=== PATIENT | male | born 1995 | race Hispanic/Latino ===

== ENCOUNTER 2020-04-14 21:53 | Emergency (ER) | payer BC, SELFPAY ==
--- NOTE | 2020-04-14 23:59 | ER ---
Nurse's Notes [facility] Name: Doroteo Stanley Age: 24 yrs Sex: Male : 1995 Arrival Date: 04/14/2020 Time: 21:59 Bed Waiting Private MD: Delma Breaux Diagnosis: Presentation: 04/14 22:14 Chief complaint: Patient states: Rectal bleed since yesterday. Bright red blood. [place] a ca1 lump in the rectal area but not sure if it hemorrhoids. Reports N/V/D. Reports pain with defecation, general weakness and rectal pain. Coronavirus screen: Client denies travel out of the [place] in the last 14 days. nausea, Client presents with at least one sign or symptom that may indicate coronavirus-19. Standard/surgical mask placed on the client. Provider contacted for isolation considerations. Ebola Screen: Patient negative for fever greater than or equal to 101.5 degrees Fahrenheit, and additional compatible Ebola Virus Disease symptoms Patient denies exposure to infectious person. Patient denies travel to an Ebola-affected area in the 21 days before illness onset. No symptoms or risks identified at this time. Initial Sepsis Screen: Does the patient meet any 2 criteria? No. Patient's initial sepsis screen is negative. Does the patient have a suspected source of infection? No. Patient's initial sepsis screen is negative. Risk Assessment: Do you want to hurt yourself or someone else? Patient reports no desire to harm self or others. Onset of symptoms was April 14, 2020. 22:14 Method Of Arrival: Ambulatory ca1 22:14 Acuity: YOJANA 3 ca1 23:58 Note notified by registration that pt left without being seen. bb Historical: - Allergies: 22:17 No Known Allergies; ca1 - Home Meds: 22:17 None [Active]; ca1 - PMHx: 22:17 None; ca1 - PSHx: 22:17 Appendectomy; ca1 - Immunization history:: Adult Immunizations up to date, Flu vaccine is not up to date. - Social history:: Smoking status: Patient denies any tobacco usage or history of. Vital Signs: 22:14 BP 120 / 71; Pulse 108; Resp 18 S; Temp 99.2(TE); Pulse Ox 99% ; Weight 110.22 kg (R); ca1 Height 5 ft. 8 in. (172.72 cm) (R); Pain 6/10; 22:14 Body Mass Index 36.95 (110.22 kg, 172.72 cm) ca1 ED Course: 21:59 Patient arrived in ED. am2 21:59 Delma Breaux is Private Physician. am2 22:14 Arm band placed on right wrist. ca1 22:17 Triage completed. ca1 23:58 Patient's name was called from ER lobby. Unable to locate patient. Will disposition as bb left without being seen by a provider. Administered Medications: No medications were administered Outcome: 23:59 Patient left the ED. bb Signatures: Rashmi Comer RN RN bb Deena Alcantara am2 Jeanna Marquez RN RN ca1 Corrections: (The following items were deleted from the chart) 22:18 22:14 Pulse 108bpm; Resp 18bpm; Spontaneous; Pulse Ox 99%; Temp 99.2F Temporal; 110.22 ca1 kg Reported; Height 5 ft. 8 in. Reported; BMI: 36.9; Pain 6/10; ca1
[2020-04-15 06:29] VITALS: BP 120/71; TEMP 99.2; O2SAT 99
== END 2020-04-14 23:59 | disposition left against medical advice (07) ==
LOC: ER 21:53
DX: Z53.21 Procedure and treatment not carried out due to patient leaving prior to being seen by health care provider (principal)
CPT/HCPCS: 99281

== ENCOUNTER 2020-04-16 09:22 | Emergency (ER) | payer SELFPAY ==
--- OUTSIDE RECORDS SUMMARY | 2020-04-16 09:24 | XMS REPORT | Continuity of Care Document ---
:1995 Author Organization [facility] t Address [address] [place] [address] [place] [id number] Care Team Providers Name Role Phone Unavailable Unavailable Unavailable Problems This patient has no known problems. Allergies, Adverse Reactions, Alerts This patient has no known allergies or adverse reactions. Medications This patient has no known medications. Procedures This patient has no known procedures. Results This patient has no known results.
[2020-04-16 10:50] LABS: RBC Red Blood Cell Count 5.08 M/uL (4.33-5.43)
[2020-04-16 10:51] LABS: Absolute Lymphocytes (CBC) 0.6 K/uL (0.7-4.9); Basophils % 0.2 % (0-1.3); Hematocrit 42.7 % (39.6-49.0); Lymphocytes % 4.2 % (15.3-44.8); MPV 8.9 fL (7.6-11.3)
[2020-04-16] MEDS ORDERED: FAMOTIDINE 20 MG/2 ML VIAL IV ONE (10:53)
[2020-04-16] MEDS ORDERED: ONDANSETRON 4 MG/2 ML VIAL ONE (10:53)
[2020-04-16] MEDS ORDERED: NA CHLORIDE 0.9% 1,000 ML ONE (10:53)
[2020-04-16 11:09] LABS: ALT/SGPT 61 U/L (12-78); AST/SGOT 22 U/L (15-37); Albumin 4.2 g/dL (3.4-5.0); Alkaline Phosphatase 65 U/L (45-117); BUN Blood Urea Nitrogen 13 mg/dL (7-18); Bicarbonate 27 mmol/L (21-32); Bilirubin Direct 0.1 mg/dL (0-0.2); Bilirubin Total 0.7 mg/dL (0.2-1.0); Glucose Level 113 mg/dL (74-106); Lipase 87 U/L (73-393); Potassium 3.7 mmol/L (3.5-5.1); Protein, Total 8.3 g/dL (6.4-8.2); Sodium Level 139 mmol/L (136-145)
--- NOTE | 2020-04-16 11:45 | RAD REPORT ---
EXAM DESCRIPTION: CTAbdomen Pelvis W Contrast - 04/16/2020 11:27 am CLINICAL HISTORY: Abdominal pain. abdominal pain, vomiting COMPARISON: No comparisons TECHNIQUE: Biphasic CT imaging of the abdomen and pelvis was performed with 100 ml non-ionic IV cont rast. All CT scans are performed using dose optimization technique as appropriate and may include automated exposure control or mA/KV adjustment according to patient size. FINDINGS: The lung bases are clear. The liver, spleen, pancreas, adrenal glands and kidneys are within normal limits. No bowel obstruction, free air, free fluid or abscess. Appendectomy. No evidence of significant lym phadenopathy. No suspicious bony findings. IMPRESSION: No acute intra-abdominal or pelvic finding.
--- NOTE | 2020-04-16 11:58 | ER ---
Nurse's Notes [facility] Name: Doroteo Stanley Age: 24 yrs Sex: Male : 1995 Arrival Date: 04/16/2020 Time: 09:25 Bed 23 Private MD: Diagnosis: Gastrointestinal hemorrhage, unspecified;Vomiting Presentation: 04/16 09:38 Chief complaint: Abdominal pain and bright red blood in stool x 4 days, neck stiffness, hb N/V, and headache today. Not tolerating fluids. Coronavirus screen: Client presents with at least one sign or symptom that may indicate coronavirus-19. Standard/surgical mask placed on the client. Provider contacted for isolation considerations. Ebola Screen: No symptoms or risks identified at this time. Initial Sepsis Screen: Does the patient meet any 2 criteria? HR > 90 bpm. No. Patient's initial sepsis screen is negative. Does the patient have a suspected source of infection? No. Patient's initial sepsis screen is negative. Risk Assessment: Do you want to hurt yourself or someone else? Patient reports no desire to harm self or others. Onset of symptoms was April 12, 2020. 09:38 Method Of Arrival: Ambulatory hb 09:38 Acuity: YOJANA 3 hb Triage Assessment: 10:30 General: Appears in no apparent distress. uncomfortable, Behavior is calm, cooperative. dm5 Pain: Complains of pain in abdomen. Neuro: No deficits noted. Cardiovascular: No deficits noted. Respiratory: No deficits noted. GI: Reports lower abdominal pain, upper abdominal pain, bloody stool, nausea. Derm: Skin is intact, is healthy with good turgor. Historical: - Allergies: 09:40 No Known Allergies; hb - Home Meds: 09:40 None [Active]; hb - PMHx: 09:40 None; hb - PSHx: 09:40 Appendectomy; hb - Immunization history:: Adult Immunizations up to date. - Social history:: Smoking status: Patient denies any tobacco usage or history of. Screenin:55 Abuse screen: Denies threats or abuse. Denies injuries from another. Nutritional dm5 screening: No deficits noted. Tuberculosis screening: No symptoms or risk factors identified. Fall Risk None identified. Vital Signs: 09:38 BP 124 / 80; Pulse 114; Resp 16; Temp 99.9(TE); Pulse Ox 98% on R/A; Pain 10/10; hb 12:43 BP 118 / 76; Pulse 95; Resp 18; Temp 98.0; Pulse Ox 100% on R/A; dm5 ED Course: 09:25 Patient arrived in ED. ds1 09:40 Triage completed. hb 09:40 Arm band placed on. hb 10:20 Kong Hamilton PA is PHCP. [facility] 10:20 Mello Garcia MD is Attending Physician. jmm 10:30 Initial lab(s) drawn, by nj, sent to lab. Inserted saline lock: 20 gauge in right dm5 antecubital area, using aseptic technique. Blood collected. 10:37 Beronica Casas, RN is Primary Nurse. dm5 10:55 Patient has correct armband on for positive identification. Warm blanket given. dm5 11:24 CT completed. Patient tolerated procedure well. Patient moved to CT via wheelchair. sw Patient moved back from CT. 11:27 CT Abd/Pelvis - IV Contrast Only In Process Unspecified. EDMS 11:56 Landon Monaco MD is Referral Physician. jmm 12:43 IV discontinued, intact, bleeding controlled, No redness/swelling at site. Pressure dm5 dressing applied. Administered Medications: 10:42 Drug: NS 0.9% 1000 ml Route: IV; Rate: 1 bolus; Site: right antecubital; dm5 10:43 Drug: Zofran (Ondansetron) 4 mg Route: IVP; Site: right antecubital; dm5 10:46 Drug: Pepcid 20 mg Route: IVP; Site: right antecubital; dm5 10:48 CANCELLED (Duplicate Order): Pepcid 10 mg IVP once dm5 Outcome: 11:57 Discharge ordered by . jmm 13:07 Patient left the ED. dm5 Signatures: Dispatcher [employer] EDMS Beronica Casas, RN RN dm5 Kong Hamilton PA PA jmm Sanford, Demi ds1 Margie Garcia Heather, CARY RN hb
--- NOTE | 2020-04-16 11:58 | EDPHYS ---
Physician Documentation [facility] Name: Doroteo Stanley Age: 24 yrs Sex: Male : 1995 Arrival Date: 04/16/2020 Time: 09:25 Bed 23 Private MD: ED Physician Mello Garcia HPI: 04/16 10:55 This 24 yrs old Male presents to ER via Ambulatory with complaints of jmm Nausea/Vomiting, Bloody Stools. 10:55 The patient presents to the emergency department with nausea, vomiting, diarrhea, jmm abdominal pain. Onset: The symptoms/episode began/occurred gradually, 4 day(s) ago. Possible causes: unknown. The symptoms are aggravated by nothing. The symptoms are alleviated by nothing. This is a 24 year old male with no known chronic medical conditions that presents to the ED with complaints of rectal bleeding, vomiting abdominal pain. Beginning approx 4 days ago. Blood is bright red. Denies fever. Surgical history of appendectomy 3 years prior. . Historical: - Allergies: 09:40 No Known Allergies; hb - Home Meds: 09:40 None [Active]; hb - PMHx: 09:40 None; hb - PSHx: 09:40 Appendectomy; hb - Immunization history:: Adult Immunizations up to date. - Social history:: Smoking status: Patient denies any tobacco usage or history of. ROS: 10:55 Constitutional: Negative for fever, chills, and weight loss, Cardiovascular: Negative jmm for chest pain, palpitations, and edema, Respiratory: Negative for shortness of breath, cough, wheezing, and pleuritic chest pain. 10:55 Abdomen/GI: Positive for abdominal pain, nausea and vomiting, rectal bleeding. 10:55 All other systems are negative. Exam: 10:55 Constitutional: This is a well developed, well nourished patient who is awake, alert, jmm and in no acute distress. Head/Face: atraumatic. Eyes: EOMI, no conjunctival erythema appreciated ENT: Moist Mucus Membranes Neck: Trachea midline, Supple Chest/axilla: Normal chest wall appearance and motion. Cardiovascular: Regular rate and rhythm. No edema appreciated Respiratory: Normal respirations, no respiratory distress appreciated 10:55 Back: Normal ROM Skin: General appearance color normal MS/ Extremity: Moves all extremities, no obvious deformities appreciated, no edema noted to the lower extremities Neuro: Awake and alert, normal gait Psych: Behavior is normal, Mood is normal, Patient is cooperative and pleasant 10:55 Abdomen/GI: Inspection: abdomen appears normal, Bowel sounds: normal, Palpation: soft, in all quadrants, nontender, Rectal exam: mass, that is small, with tenderness, tenderness, that is mild, judy blood on YIMI. Vital Signs: 09:38 BP 124 / 80; Pulse 114; Resp 16; Temp 99.9(TE); Pulse Ox 98% on R/A; Pain 10/10; hb 12:43 BP 118 / 76; Pulse 95; Resp 18; Temp 98.0; Pulse Ox 100% on R/A; dm5 MDM: 10:29 Patient medically screened. [facility] 11:53 Data reviewed: vital signs, nurses notes. Counseling: I had a detailed discussion with lucy the patient and/or guardian regarding: the historical points, exam findings, and any diagnostic results supporting the discharge/admit diagnosis, lab results, radiology results, the need for outpatient follow up, to return to the emergency department if symptoms worsen or persist or if there are any questions or concerns that arise at home. ED course: Patient is alert and non toxic in appearance in the ED. YIMI most likely hemorrhoid, will treat with rectal steroids. Patient is advised to follow up with. 04/16 10:31 Order name: Basic Metabolic Panel; Complete Time: 11: 5 04/16 10:31 Order name: CBC with Diff; Complete Time: 11: 5 04/16 10:31 Order name: Hepatic Function; Complete Time: 11:14 [facility] 04/16 10:31 Order name: Lipase; Complete Time: 11:14 5 04/16 10:42 Order name: CT Abd/Pelvis - IV Contrast Only; Complete Time: 11:52 [facility] 04/16 10:31 Order name: IV Saline Lock; Complete Time: 11:45 [facility] 04/16 10:31 Order name: Labs collected and sent; Complete Time: 11:45 5 Administered Medications: 10:42 Drug: NS 0.9% 1000 ml Route: IV; Rate: 1 bolus; Site: right antecubital; dm5 10:43 Drug: Zofran (Ondansetron) 4 mg Route: IVP; Site: right antecubital; dm5 10:46 Drug: Pepcid 20 mg Route: IVP; Site: right antecubital; dm5 10:48 CANCELLED (Duplicate Order): Pepcid 10 mg IVP once dm5 Disposition: 15:20 Co-signature as Attending Physician, Mello Garcia MD I agree with the assessment and kdr plan of care. Disposition: 04/16/20 11:57 Discharged to Home. Impression: Gastrointestinal hemorrhage, unspecified, Vomiting. - Condition is Stable. - Discharge Instructions: Gastrointestinal Bleeding, Hemorrhoids, Nausea and Vomiting, Adult, Rectal Bleeding, How to Take a Sitz Bath. - Prescriptions for Zofran ODT 4 mg Oral tablet,disintegrating - place 1 tablet by TRANSLINGUAL route every 4-6 hours; 20 tablet. Bentyl 20 mg Oral Tablet - take 2 tablet by ORAL route every 6 hours As needed; 40 tablet. Flagyl 500 mg Oral Tablet - take 1 tablet by ORAL route every 6 hours for 10 days; 40 tablet. Pepcid 20 mg Oral Tablet - take 1 tablet by ORAL route every 12 hours for 10 days; 20 tablet. Cipro 500 mg Oral Tablet - take 1 tablet by ORAL route every 12 hours for 7 days; 20 tablet. Anusol- HC 25 mg Rectal Suppository - insert 1 suppository by RECTAL route every 12 hours As needed; 20 suppository. - Medication Reconciliation Form, Thank You Letter, Antibiotic Education, Prescription Opioid Use form. - Follow up: Landon Monaco MD; When: 2 - 3 days; Reason: Recheck today's complaints, Continuance of care, Re-evaluation by your physician. Signatures: Dispatcher [employer] [facility] Beronica Casas, RN RN dm5 Mello Garcia MD MD kdr Mickail, Joel, PA PA jmm Baxter, Heather RN RN Corrections: (The following items were deleted from the chart) 10:48 10:38 Pepcid 10 mg IVP once ordered. dm5 dm5 13:07 11:57 04/16/2020 11:57 Discharged to Home. Impression: Gastrointestinal hemorrhage, dm5 unspecified; Vomiting. Condition is Stable. Forms are Medication Reconciliation Form, Thank You Letter, Antibiotic Education, Prescription Opioid Use. Follow up: Landon Monaco; When: 2 - 3 days; Reason: Recheck today's complaints, Continuance of care, Re-evaluation by your physician. lucy
[2020-04-16 14:25] VITALS: BP 118/76; TEMP 98; O2SAT 100
== END 2020-04-16 13:07 | disposition home or self-care (01) ==
LOC: ER 09:22
DX: K92.2 Gastrointestinal hemorrhage, unspecified (principal)
CPT/HCPCS: 36415; 74177; 80048; 80076; 83690; 85025; 96374; 96375; 99284; J2405; J7030; Q9967